=== PATIENT | male | born 1955 | race Caucasian/White ===

== ENCOUNTER 2020-03-11 14:01 | Emergency (ER) | payer MEDICARE ==
[2020-03-11 14:18] VITALS: BP 129/80; PULSE 69; O2SAT 96
--- NOTE | 2020-03-11 14:35 | ERPHSYRPT ---
- History of Present Illness Source: patient Patient Subjective Stated Complaint: Rash Triage Nursing Assessment: Patient ambulated back to ED and transferred self to bed. Patient A+O X 3. Patient's skin pink, warm and dry. Patient complains of rash to left ankle that appeared one week ago. Patient states the area itches. Patient also denies pain. Patient has 1cm X 1cm red raised area to left ankle. Physician History: Possible Ringworn L ankle. Pruritic/No fever/No previous h/o similar rash. Timing/Duration: other (1 week) Quality: itchy Severity: mild Location: other (L ankle) Possible Causes: other (Ring worm) Associated Symptoms: denies symptoms Allergies/Adverse Reactions: No Known Drug Allergies Allergy (Unverified 03/11/20 14:11) Hx Influenza Vaccination/Date Given: No Hx Pneumococcal Vaccination/Date Given: No Immunizations Up to Date: Yes Travel Risk - International Travel Have you traveled outside of the country in past 3 weeks: No - Coronavirus Screening Are you exhibiting any of the following symptoms?: No Close contact with a COVID-19 positive Pt in past 14-21 Days: No - Review of Systems Constitutional: No Symptoms Eyes: No Symptoms Ears, Nose, & Throat: No Symptoms Respiratory: No Symptoms Cardiac: No Symptoms Abdominal/Gastrointestinal: No Symptoms Genitourinary Symptoms: No Symptoms Neurological: No Symptoms Psychological: No Symptoms Endocrine: No Symptoms Hematologic/Lymphatic: No Symptoms Immunological/Allergic: No Symptoms - Past Medical History Pertinent Past Medical History: Yes Neurological History: No Pertinent History ENT History: No Pertinent History Cardiac History: Coronary Artery Disease Respiratory History: No Pertinent History Endocrine Medical History: No Pertinent History Musculoskeletal History: No Pertinent History GI Medical History: No Pertinent History History: No Pertinent History Psycho-Social History: No Pertinent History Male Reproductive Disorders: No Pertinent History - Past Surgical History Past Surgical History: Yes Neuro Surgical History: No Pertinent History Cardiac: Other Respiratory: No Pertinent History Gastrointestinal: No Pertinent History Genitourinary: No Pertinent History Musculoskeletal: No Pertinent History Male Surgical History: No Pertinent History Other Surgical History: heart ablation - Social History Smoking Status: Current every day smoker How long have you smoked: years Exposure to second hand smoke: No Drug Use: marijuana Patient Lives Alone: No Significant Family History: no pertinent family hx - Nursing Vital Signs Nursing Vital Signs: Initial Vital Signs Temperature 98.3 F 03/11/20 14:12 Pulse Rate 69 03/11/20 14:12 Respiratory Rate 18 03/11/20 14:12 Blood Pressure 129/80 03/11/20 14:12 O2 Sat by Pulse Oximetry 97 03/11/20 14:12 Pain Scale Pain Intensity 0 - Physical Exam General Appearance: no apparent distress Eye Exam: PERRL/EOMI, eyes nml inspection Ears, Nose, Throat Exam: normal ENT inspection, TMs normal, pharynx normal, moist mucous membranes Neck Exam: normal inspection, non-tender, supple, full range of motion, No meningismus, No mass, No Brudzinski, No Kernig's Respiratory Exam: normal breath sounds, lungs clear, airway intact Cardiovascular Exam: regular rate/rhythm, normal heart sounds, normal peripheral pulses, No murmur Gastrointestinal/Abdomen Exam: soft, normal bowel sounds, No tenderness Back Exam: normal inspection Extremity Exam: other (Tinea corpois L medial ankle) Skin Exam: other (Tinea Corporis L medial ankle) Lymphatic Exam: No adenopathy SpO2 Interpretation: normal SpO2: 96 O2 Delivery: Room Air - Course Nursing assessment & vital signs reviewed: Yes - Departure Departure Disposition: Home Clinical Impression: Tinea corporis Condition: Stable Critical Care Time: No Referrals: DOCTOR,NO FAMILY [Primary Care Provider] - Instructions: Fungal Skin Rash (DC) Additional Instructions: Apply Econazole cream to area until improved Follow up with your family MD if lesion does not improve Prescriptions: Econazole/Niacinamide [Econazole Nit 1%-Niacinamide4%] 30 gm TP BID #1 cream..g.
== END 2020-03-11 14:21 | disposition home or self-care (01) ==
LOC: ED 14:01
DX: B35.4 Tinea corporis (principal)
CPT/HCPCS: 99283

== ENCOUNTER 2023-03-31 11:19 | Emergency (ER) | payer MEDICARE ==
[2023-03-31 11:30] VITALS: RESP 20; O2SAT 98
[2023-03-31 11:58] VITALS: BP 143/87; PULSE 68; TEMP 98.2
--- NOTE | 2023-03-31 12:03 | ERPHSYRPT ---
- History of Present Illness Time Seen by Provider: 03/31/23 11:58 Source: patient Exam Limitations: no limitations Patient Subjective Stated Complaint: Pt states "I have this abscess on the back of my neck." Triage Nursing Assessment: Pt presented alert and oriented X 3, skin pwd. Pt ambulates with an upright steady gait, able to speak in clear full sentences. Pt has swelling noted to back of neck. Physician History: Patient presents with a complaint of a the abscess on the back of the neck. This has been present before and was drained up on 1 occasion in the past. He is scheduled to follow-up for removal of the of a sebaceous cyst right at the hairline of the neck. He was treated with antibiotics initially but has been off of those for some time. He complains of it being very severe pain and interfering with his sleep. Timing/Duration: week(s) (2) Quality: painful Severity: moderate Location: neck Allergies/Adverse Reactions: No Known Drug Allergies Allergy (Verified 03/31/23 11:32) Home Medications: Apixaban [Eliquis] 5 mg PO DAILY 03/31/23 [History] Metoprolol Succinate [Kapspargo Sprinkle] 100 mg PO DAILY 03/31/23 [History] Hx Tetanus, Diphtheria Vaccination/Date Given: Yes Hx Influenza Vaccination/Date Given: No Hx Pneumococcal Vaccination/Date Given: No Immunizations Up to Date: Yes Travel Risk - International Travel Have you traveled outside of the country in past 3 weeks: No - Coronavirus Screening Are you exhibiting any of the following symptoms?: No Close contact with a COVID-19 positive Pt in past 14-21 Days: No - Vaccine Status Have you recieved a Covid-19 vaccination: No - Review of Systems Constitutional: No Fever, No Chills Eyes: No Symptoms Ears, Nose, & Throat: No Symptoms Respiratory: No Cough, No Dyspnea Cardiac: No Chest Pain, No Edema, No Syncope Abdominal/Gastrointestinal: No Abdominal Pain, No Nausea, No Vomiting, No Diarrhea Genitourinary Symptoms: No Dysuria Musculoskeletal: No Back Pain, No Neck Pain Skin: Other (Infected sebaceous cyst posterior neck), No Rash Neurological: No Dizziness, No Focal Weakness, No Sensory Changes Psychological: No Symptoms Endocrine: No Symptoms All Other Systems: Reviewed and Negative - Past Medical History Pertinent Past Medical History: Yes Neurological History: No Pertinent History ENT History: No Pertinent History Cardiac History: Coronary Artery Disease Respiratory History: No Pertinent History Endocrine Medical History: No Pertinent History Musculoskeletal History: No Pertinent History GI Medical History: No Pertinent History History: No Pertinent History Psycho-Social History: No Pertinent History Male Reproductive Disorders: No Pertinent History - Past Surgical History Past Surgical History: Yes Neuro Surgical History: No Pertinent History Cardiac: Other Respiratory: No Pertinent History Gastrointestinal: No Pertinent History Genitourinary: No Pertinent History Musculoskeletal: No Pertinent History Male Surgical History: No Pertinent History Other Surgical History: heart ablation - Social History Smoking Status: Current every day smoker How long have you smoked: years Exposure to second hand smoke: No Drug Use: marijuana Patient Lives Alone: No Significant Family History: no pertinent family hx - Nursing Vital Signs Nursing Vital Signs: Initial Vital Signs Temperature 98.4 F 03/31/23 11:26 Pulse Rate 66 03/31/23 11:26 Respiratory Rate 20 03/31/23 11:26 Blood Pressure 156/82 03/31/23 11:26 O2 Sat by Pulse Oximetry 98 03/31/23 11:26 Pain Scale Pain Intensity 6 - Physical Exam General Appearance: mild distress, alert Eye Exam: PERRL/EOMI, eyes nml inspection Ears, Nose, Throat Exam: normal ENT inspection, pharynx normal, moist mucous membranes Neck Exam: normal inspection, supple, full range of motion, other (He has an infected sebaceous cyst posterior neck at the hairline) Respiratory Exam: normal breath sounds, lungs clear, No respiratory distress Cardiovascular Exam: regular rate/rhythm, normal heart sounds Gastrointestinal/Abdomen Exam: soft, mass, No tenderness Back Exam: normal inspection, normal range of motion, No CVA tenderness, No vertebral tenderness Extremity Exam: normal inspection, normal range of motion Neurologic Exam: alert, oriented x 3, cooperative, normal mood/affect, sensation nml, No motor deficits Skin Exam: normal color, warm, dry SpO2 Interpretation: normal SpO2: 98 O2 Delivery: Room Air Procedures - Incision and Drainage Time of Procedure: 12:01 Timeout: Performed Site: Posterior neck Anesthesia: 1% Lidocaine cc's of anesthesia: 3 Blade Size: 11 I & D Procedure: betadine prep, sterile drapes applied, sterile dressing applied, gauze wick placed Results: large amount pus - Course Nursing assessment & vital signs reviewed: Yes - Progress Progress: improved Progress Note: 03/31/23 12:01 The infected sebaceous cyst was anesthetized with 1% lidocaine 3 cc total the cyst was then incised and a large amount of pus and some sebum was expressed from the cyst a gauze wick was placed into the abscess and it will be removed by the patient in a couple of days. He has a appointment in 7 days to try to remove the entire cyst. Medical Desision Making - Risk of complications The pt has a mod risk of morbidity or mortality based on: Need for minor surgical intervention in patient with know risk factors - Departure Departure Disposition: Home Clinical Impression: Abscess Condition: Stable Critical Care Time: No Referrals: ERIC LANGFORD NP [Primary Care Provider] - Follow up/PCP as directed Instructions: Abscess Incision and Drainage (DC) Prescriptions: clindamycin HCL [Cleocin HCl] 300 mg PO TID 7 Days #21 cap
== END 2023-03-31 12:11 | disposition home or self-care (01) ==
LOC: ED 11:19
DX: L02.11 Cutaneous abscess of neck (principal); Z79.01 Long term (current) use of anticoagulants; Z79.899 Other long term (current) drug therapy; Z28.310 Unvaccinated for COVID-19; Z72.0 Tobacco use
CPT/HCPCS: 10060; 99281